=== PATIENT | female | born 1980 | race Caucasian/White ===

== ENCOUNTER → 2016-08-28 | Outpatient (REF) | payer OTHER | LOC: M SFHCWAGY 16:38 | PROVIDERS: ATTEND Family Medicine | DX: Z11.3 Encounter for screening for infections with a predominantly sexual mode of transmission (principal) ==

== ENCOUNTER → 2017-09-24 | Outpatient (REF) | payer OTHER | LOC: M SFHCWAGY 14:08 | DX: Z12.4 Encounter for screening for malignant neoplasm of cervix (principal); Z11.3 Encounter for screening for infections with a predominantly sexual mode of transmission ==

== ENCOUNTER → 2017-10-05 | Outpatient (CLI) | payer OTHER | LOC: M WHC 09:53 | DX: N83.202 Unspecified ovarian cyst, left side (principal) | CPT/HCPCS: 76830 ==

== ENCOUNTER → 2017-11-23 | Outpatient (CLI) | payer OTHER | LOC: M WHC 13:04 | DX: N83.209 Unspecified ovarian cyst, unspecified side (principal) | CPT/HCPCS: 76830 ==

== ENCOUNTER → 2017-12-03 | Outpatient (REF) | payer OTHER | LOC: M SFHCWAGY 15:22 | DX: R87.615 Unsatisfactory cytologic smear of cervix (principal) | CPT/HCPCS: 88142 ==

== ENCOUNTER → 2018-02-16 | Outpatient (REF) | payer OTHER | LOC: M LAB REF 19:20 | DX: N93.9 Abnormal uterine and vaginal bleeding, unspecified (principal) | CPT/HCPCS: 88304 ==

== ENCOUNTER 2018-05-18 05:57 | Day surgery (SDC) | payer OTHER ==
[2018-05-18 06:50] LABS: CONTROL LINE HCG INT CTR LINE PRESENT; HCG, SERUM QUALITATIVE NEGATIVE (NEGATIVE)
[2018-05-18] MEDS: LR 1,000 ML IV ×3 (07:00→20:30)
[2018-05-18] MEDS ORDERED: LIDOCAINE 2% INJ 100 MG/5 ML SDV (FOR ANES.) As Ordered (07:59)
[2018-05-18] MEDS ORDERED: ONDANSETRON 4MG/2ML VIAL (J2405) As Ordered (07:59)
[2018-05-18] MEDS ORDERED: GLYCOPYRROLATE INJ 0.2 MG/ML 2 ML VIAL As Ordered (07:59)
[2018-05-18] MEDS ORDERED: PROPOFOL 200 MG/20 ML VIAL As Ordered (07:59)
[2018-05-18] MEDS ORDERED: fentaNYL 250 MCG/5 ML INJECTION (J3010) As Ordered (07:59)
[2018-05-18] MEDS ORDERED: METOCLOPRAMIDE INJ 10MG/2ML VIAL (J2765) As Ordered (07:59)
[2018-05-18] MEDS ORDERED: NEOSTIGMINE 10 MG/10 ML VIAL (J2710) As Ordered (07:59)
[2018-05-18] MEDS ORDERED: dexameTHASONE 4 MG/ML 1ML VIAL (J1100) As Ordered (07:59)
[2018-05-18] MEDS ORDERED: MIDAZOLAM INJ 2 MG/2 ML VIAL (J2250) As Ordered (07:59)
[2018-05-18] MEDS ORDERED: HYDROmorphone HCL 2 MG/ML 1ML VIAL (J1170) As Ordered (07:59)
[2018-05-18] MEDS ORDERED: SEVOFLURANE INHAL SOLN 250 ML BTL As Ordered (07:59)
[2018-05-18] MEDS ORDERED: KETOROLAC 60 MG/2 ML VIAL (J1885) As Ordered (07:59)
[2018-05-18] MEDS ORDERED: ROCURONIUM BROMIDE 50 MG/5 ML VIAL As Ordered ×2 (07:59→08:09)
[2018-05-18] MEDS ORDERED: ePHEDrine SULFATE 25 MG/5 ML(5MG/ML) SYRINGE As Ordered (08:13)
[2018-05-18] MEDS: buPROPion **SR TABLET** (ZYBAN) 150MG PO ×2 (09:00→21:52)
[2018-05-18] MEDS: hydroCHLOROthiazide 12.5 MG CAPSULE PO (09:00)
[2018-05-18] MEDS: FLUoxetine 20 MG CAP PO (09:00)
[2018-05-18] MEDS: LISINOPRIL 10 MG TAB PO (09:00)
[2018-05-18] MEDS: METHYLENE BLUE 0.5% (5MG/ML) 10 ML AMP (PROVAYBLUE)(Q9968 PER 1MG) As Ordered (09:13)
[2018-05-18] MEDS: BUPIVACAINE HCL 0.25% 30 ML VIAL As Ordered (10:15)
[2018-05-18] MEDS ORDERED: PERCOCET 5MG/325MG TAB PO ×3 (10:45→11:15)
[2018-05-18] MEDS ORDERED: hydrOXYzine 25 MG TAB PO (10:45)
[2018-05-18] MEDS: ONDANSETRON 4MG/2ML VIAL (J2405) IV (11:14)
[2018-05-18] MEDS ORDERED: MEPERIDINE INJ 25 MG/ML VIAL (J2175) IV (11:15)
[2018-05-18] MEDS ORDERED: ONDANSETRON 4MG/2ML VIAL (J2405) IV (11:15)
[2018-05-18] MEDS ORDERED: fentaNYL 100 MCG/2 ML INJECTION (J3010) IV (11:15)
[2018-05-18] MEDS: METOCLOPRAMIDE INJ 10MG/2ML VIAL (J2765) IV (11:26)
[2018-05-18] MEDS: DOCUSATE SODIUM 100 MG CAP PO ×2 (15:48→21:44)
[2018-05-18] MEDS: KETOROLAC 30 MG/ML VIAL (J1885) IV ×2 (15:49→20:30)
[2018-05-18] MEDS: PROMETHAZINE INJ 25 MG/ML VIAL (J2550) IV (16:05)
[2018-05-19] MEDS: KETOROLAC 30 MG/ML VIAL (J1885) IV (02:04)
[2018-05-19] MEDS: LR 1,000 ML IV ×2 (02:34→07:47)
[2018-05-19 06:51] LABS: BASO % 0.2 % (0.0-1.0); EOS % 0.3 % (0.0-3.0); HEMATOCRIT 32.7 % (36.0-47.0); HEMOGLOBIN 10.7 g/dl (12.0-15.5); IMMATURE GRANULOCYTE % 0.8 % (0-3.0); LYMPH # 2.5 10^3/uL (1.5-4.5); MEAN CORPUSCULAR HEMOGLOBIN 29.2 pg (27.0-33.0); MEAN CORPUSCULAR HGB CONC 32.7 g/dl (32.0-36.5); MEAN CORPUSCULAR VOLUME 89.1 fl (80.0-96.0); MONO # 1.2 10^3/uL (0.0-0.8); NEUTROPHILS # 10.8 10^3/uL (1.8-7.7); NEUTROPHILS % 73.7 % (36.0-66.0); PLATELET COUNT, AUTOMATED 277 10^3/uL (150-450); RED BLOOD COUNT 3.67 10^6/uL (4.00-5.40); WHITE BLOOD COUNT 14.6 10^3/uL (4.0-10.0)
[2018-05-19] MEDS: buPROPion **SR TABLET** (ZYBAN) 150MG PO (08:37)
[2018-05-19] MEDS: DOCUSATE SODIUM 100 MG CAP PO (08:37)
[2018-05-19] MEDS ORDERED: IBUPROFEN 800 MG TAB PO (10:00)
== END 2018-05-19 10:05 | disposition home or self-care (01) ==
LOC: M SDC 05:57 → M PED 11:49
DX: N93.9 Abnormal uterine and vaginal bleeding, unspecified (principal); R10.2 Pelvic and perineal pain; D25.2 Subserosal leiomyoma of uterus; N72 Inflammatory disease of cervix uteri; N83.00 Follicular cyst of ovary, unspecified side; N83.10 Corpus luteum cyst of ovary, unspecified side; D27.9 Benign neoplasm of unspecified ovary; I10 Essential (primary) hypertension; R01.1 Cardiac murmur, unspecified; E78.00 Pure hypercholesterolemia, unspecified; E55.9 Vitamin D deficiency, unspecified; M51.26 Other intervertebral disc displacement, lumbar region; F41.9 Anxiety disorder, unspecified; F32.9 Major depressive disorder, single episode, unspecified; Z79.899 Other long term (current) drug therapy
CPT/HCPCS: 58571